=== PATIENT | female | born 1960 | race African-American/Black ===

== ENCOUNTER → 2016-04-29 | Outpatient (CLI) | payer OTHER | LOC: HYPER 03-03 07:17 | DX: E11.622 Type 2 diabetes mellitus with other skin ulcer (principal); L97.211 Non-pressure chronic ulcer of right calf limited to breakdown of skin; M16.0 Bilateral primary osteoarthritis of hip; E66.01 Morbid (severe) obesity due to excess calories; I11.0 Hypertensive heart disease with heart failure; E78.5 Hyperlipidemia, unspecified; I50.9 Heart failure, unspecified; I48.91 Unspecified atrial fibrillation; F32.9 Major depressive disorder, single episode, unspecified; Z87.891 Personal history of nicotine dependence ==

== ENCOUNTER → 2016-05-07 | Outpatient (CLI) | payer OTHER | LOC: HYPER 05-06 06:55 | DX: S81.801D Unspecified open wound, right lower leg, subsequent encounter (principal); E11.622 Type 2 diabetes mellitus with other skin ulcer; L97.811 Non-pressure chronic ulcer of other part of right lower leg limited to breakdown of skin; E11.628 Type 2 diabetes mellitus with other skin complications; E11.69 Type 2 diabetes mellitus with other specified complication; M16.0 Bilateral primary osteoarthritis of hip; Z87.891 Personal history of nicotine dependence; X58.XXXD Exposure to other specified factors, subsequent encounter ==

== ENCOUNTER → 2016-06-30 | Outpatient (CLI) | payer OTHER | LOC: HYPER 06-16 07:06 | DX: S81.801D Unspecified open wound, right lower leg, subsequent encounter (principal); S80.822A Blister (nonthermal), left lower leg, initial encounter; S80.821A Blister (nonthermal), right lower leg, initial encounter; E11.69 Type 2 diabetes mellitus with other specified complication; M16.0 Bilateral primary osteoarthritis of hip; E66.01 Morbid (severe) obesity due to excess calories; I50.9 Heart failure, unspecified; I48.91 Unspecified atrial fibrillation; E78.5 Hyperlipidemia, unspecified; I11.0 Hypertensive heart disease with heart failure; F32.9 Major depressive disorder, single episode, unspecified; Z87.891 Personal history of nicotine dependence; W18.39XD Other fall on same level, subsequent encounter ==

== ENCOUNTER → 2016-07-17 | Outpatient (CLI) | payer OTHER | LOC: HYPER 07-15 10:27 | DX: E11.622 Type 2 diabetes mellitus with other skin ulcer (principal); L97.211 Non-pressure chronic ulcer of right calf limited to breakdown of skin; M16.0 Bilateral primary osteoarthritis of hip; E66.01 Morbid (severe) obesity due to excess calories; I48.91 Unspecified atrial fibrillation; G47.30 Sleep apnea, unspecified; F32.9 Major depressive disorder, single episode, unspecified; E78.5 Hyperlipidemia, unspecified; I10 Essential (primary) hypertension; Z87.891 Personal history of nicotine dependence ==

== ENCOUNTER → 2016-08-04 | Outpatient (CLI) | payer OTHER | LOC: HYPER 07:11 | DX: S81.801D Unspecified open wound, right lower leg, subsequent encounter (principal); E11.628 Type 2 diabetes mellitus with other skin complications; M16.0 Bilateral primary osteoarthritis of hip; E66.01 Morbid (severe) obesity due to excess calories; M19.90 Unspecified osteoarthritis, unspecified site; I11.0 Hypertensive heart disease with heart failure; I50.20 Unspecified systolic (congestive) heart failure; I48.91 Unspecified atrial fibrillation; F32.9 Major depressive disorder, single episode, unspecified; E78.5 Hyperlipidemia, unspecified; G47.30 Sleep apnea, unspecified; Z87.891 Personal history of nicotine dependence; X58.XXXD Exposure to other specified factors, subsequent encounter ==

== ENCOUNTER → 2016-08-18 | Outpatient (CLI) | payer OTHER | LOC: HYPER 07:11 | DX: S81.801D Unspecified open wound, right lower leg, subsequent encounter (principal); S80.821D Blister (nonthermal), right lower leg, subsequent encounter; M16.0 Bilateral primary osteoarthritis of hip; E66.01 Morbid (severe) obesity due to excess calories; E11.9 Type 2 diabetes mellitus without complications; I50.9 Heart failure, unspecified; E78.5 Hyperlipidemia, unspecified; I11.0 Hypertensive heart disease with heart failure; I48.91 Unspecified atrial fibrillation; F32.9 Major depressive disorder, single episode, unspecified; Z87.891 Personal history of nicotine dependence; Z68.44 Body mass index [BMI] 60.0-69.9, adult; X58.XXXD Exposure to other specified factors, subsequent encounter ==

== ENCOUNTER → 2016-09-10 | Outpatient (CLI) | payer OTHER | LOC: HYPER 07:09 | DX: E11.622 Type 2 diabetes mellitus with other skin ulcer (principal); L97.811 Non-pressure chronic ulcer of other part of right lower leg limited to breakdown of skin; M16.0 Bilateral primary osteoarthritis of hip; E66.01 Morbid (severe) obesity due to excess calories; M19.90 Unspecified osteoarthritis, unspecified site; I48.91 Unspecified atrial fibrillation; F32.9 Major depressive disorder, single episode, unspecified; E78.5 Hyperlipidemia, unspecified; I11.0 Hypertensive heart disease with heart failure; I50.9 Heart failure, unspecified; Z87.891 Personal history of nicotine dependence ==

== ENCOUNTER → 2016-09-24 | Outpatient (CLI) | payer OTHER | LOC: HYPER 07:15 | DX: E11.622 Type 2 diabetes mellitus with other skin ulcer (principal); L97.811 Non-pressure chronic ulcer of other part of right lower leg limited to breakdown of skin; M16.0 Bilateral primary osteoarthritis of hip; E66.01 Morbid (severe) obesity due to excess calories; Z68.44 Body mass index [BMI] 60.0-69.9, adult; I11.0 Hypertensive heart disease with heart failure; I50.9 Heart failure, unspecified; I48.91 Unspecified atrial fibrillation; F32.9 Major depressive disorder, single episode, unspecified; E78.5 Hyperlipidemia, unspecified; G47.30 Sleep apnea, unspecified; Z87.891 Personal history of nicotine dependence ==

== ENCOUNTER → 2019-01-12 | Outpatient (CLI) | payer OTHER | LOC: HYPER 02:38 | DX: E11.622 Type 2 diabetes mellitus with other skin ulcer (principal); L97.812 Non-pressure chronic ulcer of other part of right lower leg with fat layer exposed; L03.115 Cellulitis of right lower limb; I87.2 Venous insufficiency (chronic) (peripheral); I11.0 Hypertensive heart disease with heart failure; I50.32 Chronic diastolic (congestive) heart failure; I48.91 Unspecified atrial fibrillation; L03.90 Cellulitis, unspecified; G89.29 Other chronic pain; M19.90 Unspecified osteoarthritis, unspecified site; E78.5 Hyperlipidemia, unspecified; G47.30 Sleep apnea, unspecified; E66.01 Morbid (severe) obesity due to excess calories; F32.9 Major depressive disorder, single episode, unspecified; Z68.44 Body mass index [BMI] 60.0-69.9, adult; Z79.01 Long term (current) use of anticoagulants; Z79.84 Long term (current) use of oral hypoglycemic drugs; Z87.891 Personal history of nicotine dependence ==

== ENCOUNTER → 2019-01-27 | Outpatient (CLI) | payer OTHER | LOC: HYPER 01:30 | DX: E11.622 Type 2 diabetes mellitus with other skin ulcer (principal); L97.812 Non-pressure chronic ulcer of other part of right lower leg with fat layer exposed; I87.2 Venous insufficiency (chronic) (peripheral); I11.0 Hypertensive heart disease with heart failure; I50.32 Chronic diastolic (congestive) heart failure; L03.90 Cellulitis, unspecified; E78.5 Hyperlipidemia, unspecified; I48.91 Unspecified atrial fibrillation; M19.90 Unspecified osteoarthritis, unspecified site; E66.01 Morbid (severe) obesity due to excess calories; G47.30 Sleep apnea, unspecified; G89.29 Other chronic pain; F32.9 Major depressive disorder, single episode, unspecified; Z79.01 Long term (current) use of anticoagulants; Z79.84 Long term (current) use of oral hypoglycemic drugs; Z87.891 Personal history of nicotine dependence ==